=== PATIENT | female | born 1985 | race Caucasian/White ===

== ENCOUNTER 2017-10-13 19:57 | Emergency (ER) | payer SELFPAY | END 2017-10-13 20:50 | disposition left against medical advice (07) | LOC: ER 19:57 | DX: Z53.21 Procedure and treatment not carried out due to patient leaving prior to being seen by health care provider (principal) ==

== ENCOUNTER 2020-05-11 11:57 | Emergency (ER) | payer OTHER ==
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
[2020-05-11 12:30] VITALS: BP 131/82; TEMP 97.2; O2SAT 98
== END 2020-05-11 12:30 | disposition home or self-care (01) ==
LOC: ER 11:57
DX: S00.83XA Contusion of other part of head, initial encounter (principal); M54.2 Cervicalgia; Y04.0XXA Assault by unarmed brawl or fight, initial encounter; Y92.9 Unspecified place or not applicable; Z87.891 Personal history of nicotine dependence; Y07.03 Male partner, perpetrator of maltreatment and neglect